=== PATIENT | female | born 1980 | race Caucasian/White ===

== ENCOUNTER 2020-11-21 07:10 | Inpatient (IN) | payer OTHER ==
[2020-11-21 08:23] VITALS: BMI 27.1
[2020-11-21 08:23] LABS: INR 0.91 (0.83-1.09)
[2020-11-21 08:27] LABS: BLOOD UREA NITROGEN 12.4 mg/dL (7-18); CALCIUM 8.3 mg/dL (8.5-10.1)
[2020-11-21 08:29] LABS: BASO % 0.3 % (0-2.0); EOS % 1.3 % (0-4.5); HEMATOCRIT 37.7 % (32.4-45.2); LYMPH % 20.3 % (8-40); MCH 34.2 pg (25.7-33.7); MCHC 34.5 g/dl (32.0-36.0); MEAN CELL VOLUME 99.1 fl (80-96); MEAN PLT VOLUME 8.8 fl (7.5-11.1); NEUT % 67.1 % (42.8-82.8); PLATELET COUNT 203 K/MM3 (134-434); RDW 13.2 % (11.6-15.6); WHITE BLOOD COUNT 5.3 K/mm3 (4.0-10.0)
[2020-11-21 08:31] LABS: CREATININE 0.6 mg/dL (0.55-1.3)
[2020-11-21] MEDS ORDERED: DINOPROSTONE 10 MG VAGINAL SUPPOSITORY VG ONE (08:44)
[2020-11-21] MEDS ORDERED: PROMETHAZINE HCL 25 MG/1 ML VIAL IVPUSH ONE (08:45)
[2020-11-21] MEDS ORDERED: BUTORPHANOL TARTRATE 1 MG/ML VIAL IVPUSH ONE (08:45)
[2020-11-21] MEDS ORDERED: DEXTROSE 5%-LACTATED RINGERS 1,000 ML IV SCH (08:45)
[2020-11-21] MEDS ORDERED: BUTORPHANOL TARTRATE 2 MG/ML VIAL ONE (18:10)
[2020-11-21] MEDS ORDERED: PROMETHAZINE HCL 25 MG/1 ML VIAL ONE (18:10)
[2020-11-21] MEDS ORDERED: ACETAMINOPHEN 325 MG TABLET (FP) ONE (20:39)
[2020-11-21] MEDS ORDERED: ACETAMINOPHEN 325 MG TABLET (FP) PO ONE (20:46)
[2020-11-21] MEDS ORDERED: PCA PUMP NR ONE (22:10)
[2020-11-21] MEDS ORDERED: FENTANYL/BUPIVACAINE/NS/PF - PCEA - 50 ML DISP.SYRIN EP ONE (22:10)
[2020-11-21] MEDS: FENTANYL/BUPIVACAINE/NS/PF - PCEA - 50 ML DISP.SYRIN EP SCH (22:30)
[2020-11-21] MEDS ORDERED: ELECTROLYTE-148 SOLN 1,000 ML IV SCH (22:30)
[2020-11-21] MEDS ORDERED: NALOXONE HCL 0.4 MG/ML VIAL IVPUSH PRN (22:48)
[2020-11-22] MEDS ORDERED: CITRIC ACID/SODIUM CITRATE 30 ML UNIT-DOSE CUP PO ONE (00:30)
[2020-11-22] MEDS ORDERED: morphine SULFATE/PF 0.5 MG/ML (2cc Syringe - QUVA) ONE ×2 (00:35)
[2020-11-22] MEDS ORDERED: ceFAZolin SODIUM 1 GM VIAL ONE (00:42)
[2020-11-22] MEDS ORDERED: ESMOLOL HCL 100,000 MCG/10 ML VIAL ONE (01:06)
[2020-11-22] MEDS ORDERED: BENZOCAINE 20% 57 GM BOTTLE TP PRN (01:27)
[2020-11-22] MEDS ORDERED: BENZOCAINE 28 GM HEMORRHOIDAL OINTMENT PR PRN (01:27)
[2020-11-22] MEDS ORDERED: diphenhydrAMINE HCL 25 MG CAPSULE (FP) PO PRN (01:27)
[2020-11-22] MEDS ORDERED: METHYLERGONOVINE MALEATE 0.2 MG/1 ML AMP IM PRN (01:27)
[2020-11-22] MEDS ORDERED: oxyCODONE HCL 5 MG TABLET PO PRN (01:27)
[2020-11-22] MEDS ORDERED: WITCH HAZEL 50% (TUCKS) 40 PAD/JAR PAD TP PRN (01:27)
[2020-11-22] MEDS ORDERED: OXYTOCIN 20 UNITS in 0.9% NS 20 UNIT/1,000 ML INFUS.BAG IV SCH (01:30)
[2020-11-22] MEDS ORDERED: DEXTROSE 5%-LACTATED RINGERS 1,000 ML IV SCH (01:30)
[2020-11-22] MEDS ORDERED: ONDANSETRON 4 MG/2 ML VIAL IVPUSH PRN (01:47)
[2020-11-22 02:00] LABS: CORD BASE EXCESS -2.3 mmol/L (0-2); CORD HCO3 25.1 mmHg (20-29); CORD PCO2 54.4 mmHg (30-78); CORD pH 7.282 (7.14-7.44)
[2020-11-22 02:11] LABS: CORD HCO3 22.5 mmHg (20-29); CORD PCO2 59.9 mmHg (30-78); CORD pH 7.193 (7.14-7.44)
[2020-11-22] MEDS ORDERED: ACETAMINOPHEN 500 MG TABLET (FP) ONE (02:56)
[2020-11-22] MEDS ORDERED: diphenhydrAMINE HCL 25 MG CAPSULE (FP) PO ONE (02:57)
[2020-11-22] MEDS: ACETAMINOPHEN 500 MG TABLET (FP) PO PRN ×2 (03:00→23:50)
[2020-11-22] MEDS ORDERED: OXYTOCIN 20 UNITS in 0.9% NS 20 UNIT/1,000 ML INFUS.BAG IV ONE (03:05)
[2020-11-22] MEDS: CEFAZOLIN 1 GM/D5W 1 GM/50 ML BAG IVPB SCH ×2 (03:37→09:13)
[2020-11-22] MEDS: IBUPROFEN 800 MG/8 ML IJ IVPB PRN ×3 (06:14→18:41)
[2020-11-22] MEDS: LEVOTHYROXINE NA 50 MCG TABLET (FP) PO SCH (06:15)
[2020-11-22] MEDS: SIMETHICONE 80 MG TAB.CHEW (FP) PO PRN (23:51)
[2020-11-23] MEDS: FENTANYL/BUPIVACAINE/NS/PF - PCEA - 50 ML DISP.SYRIN EP SCH (00:25)
[2020-11-23] MEDS ORDERED: BISACODYL 10 MG SUPP.RECT PR PRN (01:28)
[2020-11-23] MEDS: LEVOTHYROXINE NA 50 MCG TABLET (FP) PO SCH (06:48)
[2020-11-23] MEDS: SIMETHICONE 80 MG TAB.CHEW (FP) PO PRN (06:48)
[2020-11-23] MEDS: IBUPROFEN 600 MG TABLET (FP) PO PRN ×2 (06:48→18:13)
[2020-11-23 09:38] LABS: BASO % 0.1 % (0-2.0); EOS % 0.7 % (0-4.5); HEMATOCRIT 35.1 % (32.4-45.2); LYMPH % 10.9 % (8-40); MCH 34.7 pg (25.7-33.7); MEAN CELL VOLUME 101.8 fl (80-96); MEAN PLT VOLUME 8.5 fl (7.5-11.1); MONO % 7.5 % (3.8-10.2); NEUT % 80.8 % (42.8-82.8); PLATELET COUNT 173 K/MM3 (134-434); RBC 3.45 M/mm3 (3.60-5.2); RDW 13.4 % (11.6-15.6); WHITE BLOOD COUNT 9.1 K/mm3 (4.0-10.0)
[2020-11-23] MEDS: ENOXAPARIN NA (PORCINE) 40 MG/0.4 ML DISP.SYRIN SQ SCH (10:30)
[2020-11-23] MEDS: oxyCODONE HCL 5 MG TABLET PO PRN (21:09)
[2020-11-24] MEDS: LEVOTHYROXINE NA 50 MCG TABLET (FP) PO SCH (06:24)
[2020-11-24] MEDS: SIMETHICONE 80 MG TAB.CHEW (FP) PO PRN ×3 (06:28→16:31)
[2020-11-24] MEDS: oxyCODONE HCL 5 MG TABLET PO PRN ×2 (06:28→16:29)
[2020-11-24] MEDS: IBUPROFEN 600 MG TABLET (FP) PO PRN ×2 (06:29→16:30)
[2020-11-24] MEDS: FENTANYL/BUPIVACAINE/NS/PF - PCEA - 50 ML DISP.SYRIN EP SCH (07:29)
[2020-11-24] MEDS: ENOXAPARIN NA (PORCINE) 40 MG/0.4 ML DISP.SYRIN SQ SCH (09:42)
[2020-11-24] MEDS ORDERED: SENNOSIDES/DOCUSATE COMBO (SENNA PLUS) TABLET (UD) PO PRN (22:00)
[2020-11-24 23:19] VITALS: TEMP 98.4
[2020-11-25] MEDS: IBUPROFEN 600 MG TABLET (FP) PO PRN (00:24)
[2020-11-25] MEDS: LEVOTHYROXINE NA 50 MCG TABLET (FP) PO SCH (06:54)
[2020-11-25 08:27] LABS: BASO % 0.4 % (0-2.0); EOS % 4.4 % (0-4.5); HEMATOCRIT 37.1 % (32.4-45.2); HEMOGLOBIN 12.7 GM/dL (10.7-15.3); MCH 34.7 pg (25.7-33.7); MCHC 34.4 g/dl (32.0-36.0); MEAN CELL VOLUME 100.9 fl (80-96); MEAN PLT VOLUME 8.1 fl (7.5-11.1); MONO % 9.3 % (3.8-10.2); NEUT % 59.9 % (42.8-82.8); PLATELET COUNT 200 K/MM3 (134-434); RBC 3.68 M/mm3 (3.60-5.2); RDW 13.3 % (11.6-15.6); WHITE BLOOD COUNT 3.7 K/mm3 (4.0-10.0)
[2020-11-25] MEDS: ENOXAPARIN NA (PORCINE) 40 MG/0.4 ML DISP.SYRIN SQ SCH (10:14)
[2020-11-25 13:38] VITALS: BP 104/62; PULSE 82
== END 2020-11-25 16:00 | disposition home or self-care (01) | DRG 540 ==
LOC: JLDR 07:10 → J3W 11-22 03:15
PROVIDERS: ADMIT Obstetrics & Gynecology; ATTEND Obstetrics & Gynecology
PROC: 3E0P7VZ Introduction of Hormone into Female Reproductive, Via Natural or Artificial Opening (ICD-10-PCS; 2020-11-21)
PROC: 10D00Z1 Extraction of Products of Conception, Low, Open Approach (ICD-10-PCS; principal; 2020-11-22)
DX: O48.0 Post-term pregnancy (principal); O76 Abnormality in fetal heart rate and rhythm complicating labor and delivery; O69.81X0 Labor and delivery complicated by cord around neck, without compression, not applicable or unspecified; Z3A.40 40 weeks gestation of pregnancy; Z37.0 Single live birth
CPT/HCPCS: 36415; 36600; 80048; 82803; 85025; 85610; 85730; 86850; 86900; 86901; 88307-TC; C9803; U0003; U0005